=== PATIENT | male | born 1955 | race Caucasian/White ===

== ENCOUNTER 2021-01-18 11:24 | Emergency (ER) | payer BC ==
[2021-01-18 13:50] VITALS: O2SAT 98
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
[2021-01-18 14:36] VITALS: BP 145/78; PULSE 70
--- NOTE | 2021-01-18 20:08 | XRAY ---
Indication: Pain following fall/injury. Multiple contiguous axial images obtained through the head without contrast. Comparison: None Normal appearing brain parenchyma, ventricles, and bony calvarium for patient's age. Visualized paranasal sinuses and mastoid air cells are clear. Impression: Normal CT head without contrast exam. Comment: Preliminary interpretation made by [facility]. No critical discrepancy.
--- NOTE | 2021-01-18 20:12 | XRAY ---
Indication: Pain following fall/injury. Multiple contiguous axial images obtained through the facial bones. Sagittal and coronal reformatted images obtained. Comparison: None Minimally depressed fracture involving the bridge of the nasal bone with mild overlying soft tissue swelling/laceration. No other acute fracture, suspicious bony lesions, or radiopaque foreign body. Orbits including roof, walla, and floors intact. Mild mucosal thickening floor the left maxillary sinus. Remaining paranasal sinuses and nasal passages are clear. Mild nasal septal deviation to the left. Incidental mild C5-C7 degenerative changes. Visualized noncontrasted soft tissues are unremarkable. Impression: Minimally depressed nasal bone fracture. Incidental left maxillary sinus disease and C5-C7 degenerative changes. Comment: Preliminary interpretation made by [facility]. No critical discrepancy.
--- NOTE | 2021-01-18 20:14 | XRAY ---
Indication: Pain following fall/injury. Comparison: None 3 view left wrist demonstrates nondisplaced 5th metacarpal shaft fracture with soft tissue swelling. No other bony, articular, or soft tissue abnormalities. Comment: Fracture not reported by interpreted ER clinician. Telephone report was given to ER clinician, Dr. Patiño at 2010 hrs. on January 18, 2021.
--- NOTE | 2021-01-18 20:16 | XRAY ---
Indication: Pain following fall/injury. Comparison: None 3 nonweightbearing views left foot demonstrates nondisplaced comminuted fracture proximal first phalanx with soft tissue swelling. Fracture line extends to distal articular surface. No other bony, articular, or soft tissue abnormalities.
== END 2021-01-18 14:46 | disposition home or self-care (01) ==
LOC: ED 11:24
DX: V27.0XXA Motorcycle driver injured in collision with fixed or stationary object in nontraffic accident, initial encounter (principal); S02.2XXA Fracture of nasal bones, initial encounter for closed fracture; Y93.89 Activity, other specified; Y92.9 Unspecified place or not applicable; S00.81XA Abrasion of other part of head, initial encounter; X58.XXXA Exposure to other specified factors, initial encounter
CPT/HCPCS: 70450; 70486; 73110; 73630; 99285; A4570